=== PATIENT | female | born 1985 | race Caucasian/White ===

== ENCOUNTER 2019-01-26 21:51 | Emergency (ER) | payer BC, MEDICAID ==
[2019-01-26 22:18] VITALS: BP 137/78; PULSE 99
--- NOTE | 2019-01-26 23:48 | EDM.PDOC ---
ED HPI GENERAL MEDICAL PROBLEM - General Chief Complaint: General Stated Complaint: VAGINAL/ANAL PAIN, NAUSEA Time Seen by Provider: 01/26/19 22:46 Source of Information: Reports: Patient, RN History Limitations: Reports: No Limitations - History of Present Illness INITIAL COMMENTS - FREE TEXT/NARRATIVE: Chief Complaint: vaginal pain in This is a 33 year old who presents to ER with her , reports today is having severe pelvic pain and pressure. feels like her vaginal has been assaulted. She is 10 week and is worried something is wrong with the . Had a miscarriage last fall about this time in the . She denies any bleeding, spotting or uterine cramping. denies fever or chills. Onset: Today Duration: Hour(s):, Constant Location: Reports: Pelvis Quality: Reports: Ache, Sharp Improves with: Reports: None Worsens with: Reports: None Context: Reports: Other (reports no trauma to the pelvis, was sexual active 2 days ago. ) Lower Perineal Area Pain Score (Numeric/FACES): 9 - Related Data Allergies Allergy/AdvReac Type Severity Reaction Status Date / Time norgestimate Allergy Headache Verified 05/23/15 14:33 prednisolone Allergy Hyperactivi Verified 05/23/15 14:33 ty Home Meds: Home Meds Acetaminophen [Tylenol] 325 mg PO ASDIRECTED PRN 02/27/15 [History] Calcium Carbonate/Vitamin D3 [Calcium 500 + Vit D 400] 1 each PO DAILY 01/26/19 [History] Magnesium 250 mg PO DAILY 01/26/19 [History] Pnv No.95/Ferrous Fum/Folic AC [ Multivitamin Tablet] 1 each PO DAILY [History] Past Medical History HEENT History: Reports: Impaired 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: takes metformin to regulate cycle and help get - Past Surgical History HEENT Surgical History: Reports: Oral Surgery, Other (See Below) Other HEENT Surgeries/Procedures: wisdom teeth removal Social & Family History - Tobacco Use Smoking Status *Q: Never Smoker - Caffeine Use Caffeine Use: Reports: None - Recreational Drug Use Recreational Drug Use: No ED ROS GENERAL - Review of Systems Review Of Systems: See Below Constitutional: Reports: No Symptoms HEENT: Reports: No Symptoms Respiratory: Reports: No Symptoms Cardiovascular: Reports: No Symptoms Endocrine: Reports: No Symptoms GI/Abdominal: Reports: No Symptoms : Reports: Pain (labia and rectum and vaginal vault.), Other (, 10 weeks gestation) Musculoskeletal: Reports: No Symptoms Skin: Reports: No Symptoms Neurological: Reports: No Symptoms Psychiatric: Reports: Anxiety (worried about the ) Hematologic/Lymphatic: Reports: No Symptoms Immunologic: Reports: No Symptoms ED EXAM, GENERAL - Physical Exam Exam: See Below Exam Limited By: No Limitations General Appearance: Alert, WD/WN, No Apparent Distress, Other (pleasant neat and well groomed, no distress.) Ears: Normal External Exam Nose: Normal Inspection Head: Atraumatic, Normocephalic Neck: Normal Inspection, Supple, Non-Tender Respiratory/Chest: No Respiratory Distress, Lungs Clear, Normal Breath Sounds Cardiovascular: Regular Rate, Rhythm, No Edema, No Murmur GI/Abdominal: Normal Bowel Sounds, Soft, Non-Tender, No Distention, No Abnormal Bruit, No Mass, Pelvis Stable (Female) Exam: Normal External Exam (labia and rectum without redness, lesion or discharge, does have pain with palpation of labia majora. no abscess is noted.), Normal Speculum Exam, Normal Bimanual Exam (cx is nulltip, thick and closed.), Heart Tones (168 by ultrasound), Vaginal Discharge (creamy white, + odor) Rectal (Female) Exam: Normal Exam Back Exam: Normal Inspection, Full Range of Motion Extremities: Normal Inspection, Normal Range of Motion, Non-Tender, No Pedal Edema, Normal Capillary Refill Neurological: Alert, Oriented, CN II-XII Intact, Normal Cognition, Normal Gait, Normal Reflexes, No Motor/Sensory Deficits Psychiatric: Normal Affect, Normal Mood Skin Exam: Warm, Dry, Intact, Normal Color, No Rash Lymphatic: No Adenopathy Course - Vital Signs Last Recorded V/S: Last Vital Signs Temp 37.6 C 01/26/19 22:18 Pulse 99 01/26/19 22:18 Resp 18 01/26/19 22:18 BP 137/78 01/26/19 22:18 Pulse Ox 99 01/26/19 22:18 - Orders/Labs/Meds Labs: Laboratory Tests 01/26/19 Range/Units 23:11 Urine Color Yellow Urine Appearance Clear Urine pH 6.0 (4.5-8.0) Ur Specific [place] 1.020 (1.008-1.030) Urine Protein Negative (NEGATIVE) mg/dL Urine Glucose (UA) Normal (NEGATIVE) mg/dL Urine Ketones 50 H (NEGATIVE) mg/dL Urine Occult Blood Moderate (NEGATIVE) Urine Nitrite Negative (NEGATIVE) Urine Bilirubin Negative (NEGATIVE) Urine Urobilinogen Normal (NORMAL) mg/dL Ur Leukocyte Esterase Negative (NEGATIVE) Urine RBC 0-5 (0-5) Urine WBC 0-5 (0-5) Ur Epithelial Cells Few Amorphous Sediment Not seen Urine Bacteria Moderate Urine Mucus Not seen - Radiology Interpretation Free Text/Narrative:: vaginal exam is normal, no trauma is noted to labia or rectum. tender to palpation. vaginal vault has creamy white discharge, no bleeding or discharge is noted. cx is thick and closed. labs: wet prep is negative, urine has ketones - advised to push fluids, especially while Imaging: OB ultrasound limited, single viable gestation at 10 weeks 2 days, activity noted, heart tones 168, placenta without any signs of abruption or abnormality. no free fluid is seen. discussed with Chinyere and Partner all is well. will need to have pelvic rest, push fluids, and follow up with OB for recheck. agree with plan of care. 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 - Problem List & Annotations (1) Pelvic pain affecting in first trimester, antepartum SNOMED Code(s): 327244745, 865247016 Code(s): O26.891 - OTH RELATED CONDITIONS, FIRST TRIMESTER; R10.2 - PELVIC AND PERINEAL PAIN Status: Acute Priority: High - Problem List Review Problem List Initiated/Reviewed/Updated: Yes - Assessment/Plan Plan: abdominal -pelvic pain in -rest -push fluids -take Tylenol or Motrin for pain -follow up with OB-COMPUTER INSTALLER for recheck return to ER for increase pain, vaginal bleeding, cramping, fever or any concerns.
--- NOTE | 2019-01-26 23:48 | CRLUS ---
HISTORY: Vaginal pain and pressure COMPARISON: None available of this gestation. TECHNIQUE: Transabdominal ultrasound examination of the early was performed. FINDINGS: A single intrauterine gestational sac is seen with a pole. The crown-rump length measurement of 3.5 cm gives an estimated gestational age of 10 weeks 3 days with an estimated date of delivery of 08/21/2019. This correlates well with the LMP of 11/15/2018 which gives a clinical age of 10 weeks 2 days. Regular cardiac activity is seen at 169 BPM. There is no sign of free fluid in the pelvis. The ovaries are normal in appearance. IMPRESSION: Single intrauterine gestation with estimated age of 10 weeks 3 days. Regular cardiac activity is seen. Dictated by Cristopher Kenney MD @ Jan 26 2019 11:45PM Signed by Dr. Cristopher Kenney @ Jan 26 2019 11:48PM
== END 2019-01-26 23:51 | disposition home or self-care (01) ==
LOC: JP.ED 21:51
DX: O26.891 Other specified pregnancy related conditions, first trimester (principal); R10.2 Pelvic and perineal pain; Z3A.10 10 weeks gestation of pregnancy; Z88.8 Allergy status to other drugs, medicaments and biological substances; Z79.899 Other long term (current) drug therapy; Z79.84 Long term (current) use of oral hypoglycemic drugs
CPT/HCPCS: 76815; 81001; 87210; 99284-25

== ENCOUNTER 2020-12-08 16:08 | Emergency (ER) | payer MEDICAID ==
[2020-12-08 16:33] VITALS: BP 135/46; PULSE 86
--- NOTE | 2020-12-08 16:49 | EDM.PDOC ---
ED HPI GENERAL MEDICAL PROBLEM - General Chief Complaint: Lower Extremity Injury/Pain Stated Complaint: SWOLLEN CALF AND LEG Time Seen by Provider: 12/08/20 16:49 Source of Information: Reports: Patient, RN Notes Reviewed History Limitations: Reports: No Limitations - History of Present Illness INITIAL COMMENTS - FREE TEXT/NARRATIVE: Chinyere presents today for complaints of eight leg edema for two weeks with worsening today. She also reports pain to the top of her right foot. She denies any injury/trauma, fever, chills, nausea, vomiting or other concerns. Right Foot Pain Score (Numeric/FACES): 2 - Related Data Allergies Allergy/AdvReac Type Severity Reaction Status Date / Time norgestimate Allergy Headache Verified 12/08/20 16:33 prednisolone Allergy Hyperactivi Verified 12/08/20 16:33 ty Home Meds: Home Meds Acetaminophen [Tylenol] 325 mg PO ASDIRECTED PRN 02/27/15 [History] Calcium Carbonate/Vitamin D3 [Calcium 500 + Vit D 400] 1 each PO DAILY 01/26/19 [History] Magnesium 250 mg PO DAILY 01/26/19 [History] Pnv No.95/Ferrous Fum/Folic AC [ Multivitamin Tablet] 1 each PO DAILY 01/26/19 [History] Ascorbate Calcium [Vitamin C] 500 mg PO DAILY 12/08/20 [History] Cholecalciferol (Vitamin D3) [Vitamin D3] 1,000 unit PO DAILY 12/08/20 [History] Past Medical History HEENT History: Reports: Impaired Vision 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: , 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: takes metformin to regulate cycle and help get Gravada3 para1 - Infectious Disease History Infectious Disease History: Reports: Chicken Pox - Past Surgical History HEENT Surgical History: Reports: Oral Surgery, Other (See Below) Other HEENT Surgeries/Procedures: wisdom teeth removal Social & Family History - Tobacco Use Tobacco Use Status *Q: Never Tobacco User Second Hand Smoke Exposure: No - Caffeine Use Caffeine Use: Reports: None - Alcohol Use Days Per Week of Alcohol Use: 0 - Recreational Drug Use Recreational Drug Use: No Review of Systems - Review of Systems Review Of Systems: See Below Constitutional: Reports: No Symptoms Eyes: Reports: No Symptoms Ears: Reports: No Symptoms Nose: Reports: No Symptoms Mouth/Throat: Reports: No Symptoms Respiratory: Reports: No Symptoms Cardiovascular: Reports: No Symptoms GI/Abdominal: Reports: No Symptoms Genitourinary: Reports: No Symptoms Musculoskeletal: Reports: Foot Pain, Other (right lower extremity ) ED EXAM, GENERAL - Physical Exam Exam: See Below Exam Limited By: No Limitations General Appearance: Alert, WD/WN, No Apparent Distress Throat/Mouth: Normal Inspection, Normal Lips, Normal Teeth, Normal Gums, Normal Oropharynx, Normal Voice, No Airway Compromise Head: Atraumatic, Normocephalic Neck: Normal Inspection, Supple, Non-Tender, Full Range of Motion. No: Lymp hadenopathy (R), Lymphadenopathy (L) Respiratory/Chest: No Respiratory Distress, Lungs Clear, Normal Breath Sounds, No Accessory Muscle Use, Chest Non-Tender. No: Crackles, Rales, Rhonchi, Wheezing Cardiovascular: Normal Peripheral Pulses, Regular Rate, Rhythm, No Edema, No Gallop, No Murmur, No Rub Peripheral Pulses: 4+: Radial (L), Radial (R), Dorsalis Pedis (L), Dorsalis Pedis (R) Extremities: Normal Inspection, Normal Range of Motion, Non-Tender, No Pedal Edema, Normal Capillary Refill Neurological: Alert, Oriented, Normal Cognition, Normal Gait, Normal Reflexes Psychiatric: Normal Affect, Normal Mood Skin Exam: Warm, Dry, Intact, Normal Color, No Rash, Other (Noted 1+ pitting edema to right lower extremity from mid-calf to right foot) #1 Interpretation EKG Date: 12/08/20 Time: 19:04 Rhythm: NSR Treadwell: Normal P-Wave: Present QRS: Normal ST-T: Normal QT: Normal Comparison: NA - No Prior EKG Course - Vital Signs Last Recorded V/S: Last Vital Signs Temp 36.6 C 12/08/20 16:39 Pulse 86 12/08/20 16:39 Resp 12 12/08/20 16:39 BP 135/46 L 12/08/20 16:39 Pulse Ox 97 12/08/20 16:39 - Orders/Labs/Meds Orders: Active Orders 24 hr Category Date Time Status VL Duplex Lwr Ext Veins Ltd Rt [US] Stat Exams 12/08/20 17:09 Taken EKG 12 Lead [EK] Routine Ther 12/08/20 19:01 Ordered Labs: Laboratory Tests 12/08/20 12/08/20 12/08/20 Range/Units 17:25 17:25 17:25 WBC 12.3 H (4.5-11.0) K/uL RBC 3.80 (3.30-5.50) M/uL Hgb 11.3 L D (12.0-15.0) g/dL Hct 34.5 L (36.0-48.0) % MCV 91 (80-98) fL MCH 30 (27-31) pg MCHC 33 (32-36) % Plt Count 265 (150-400) K/uL Neut % (Auto) 75.0 H (36-66) % Lymph % (Auto) 17.1 L (24-44) % [place] % (Auto) 7.0 H (2-6) % Eos % (Auto) 0.7 L (2-4) % Baso % (Auto) 0.2 (0-1) % PT 10.0 (9.5-12.0) sec INR 0.92 (0.80-1.20) APTT 26.8 L (27.0-36.0) sec D-Dimer, Quantitative 569.23 H (0.0-500.0) ng/mL Sodium (140-148) mmol/L Potassium (3.6-5.2) mmol/L Chloride (100-108) mmol/L Carbon Dioxide (21-32) mmol/L Anion Gap (5.0-14.0) mmol/L BUN (7-18) mg/dL Creatinine (0.6-1.0) mg/dL Est Cr Clr Drug Dosing mL/min Estimated GFR (MDRD) (>60) Glucose (74-106) mg/dL Calcium (8.5-10.1) mg/dL Total Bilirubin (0.2-1.0) mg/dL AST (15-37) U/L ALT (12-78) U/L Alkaline Phosphatase (46-116) U/L Total Protein (6.4-8.2) g/dL Albumin (3.4-5.0) g/dL Globulin (2.3-3.5) g/dL Albumin/Globulin Ratio (1.2-2.2) 12/08/20 Range/Units 17:25 WBC (4.5-11.0) K/uL RBC (3.30-5.50) M/uL Hgb (12.0-15.0) g/dL Hct (36.0-48.0) % MCV (80-98) fL MCH (27-31) pg MCHC (32-36) % Plt Count (150-400) K/uL Neut % (Auto) (36-66) % Lymph % (Auto) (24-44) % [place] % (Auto) (2-6) % Eos % (Auto) (2-4) % Baso % (Auto) (0-1) % PT (9.5-12.0) sec INR (0.80-1.20) APTT (27.0-36.0) sec D-Dimer, Quantitative (0.0-500.0) ng/mL Sodium 140 (140-148) mmol/L Potassium 3.7 (3.6-5.2) mmol/L Chloride 104 (100-108) mmol/L Carbon Dioxide 25 (21-32) mmol/L Anion Gap 11.5 (5.0-14.0) mmol/L BUN 12 (7-18) mg/dL Creatinine 0.8 (0.6-1.0) mg/dL Est Cr Clr Drug Dosing 90.00 mL/min Estimated GFR (MDRD) > 60 (>60) Glucose 77 (74-106) mg/dL Calcium 8.7 (8.5-10.1) mg/dL Total Bilirubin 0.2 (0.2-1.0) mg/dL AST 9 L (15-37) U/L ALT 14 (12-78) U/L Alkaline Phosphatase 48 (46-116) U/L Total Protein 6.3 L (6.4-8.2) g/dL Albumin 2.9 L (3.4-5.0) g/dL Globulin 3.4 (2.3-3.5) g/dL Albumin/Globulin Ratio 0.9 L (1.2-2.2) Patient lab work reviewed with her. Noted ddimer elevated - can be with . US pending. - Radiology Interpretation Free Text/Narrative:: US of left leg negative for DVT. - Re-Assessments/Exams Free Text/Narrative Re-Assessment/Exam: Lab work and US discussed with Chinyere, no acute findings noted. She will work on fluid intake, monitor sodium in diet, obtain compression stockings and follow up with her primary and OB as directed. Return for any worsening, issues or concerns. Departure - Departure Time of Disposition: 19:02 Disposition: Home, Self-Care 01 Condition: Good Clinical Impression: Edema of right lower leg - Discharge Information *PRESCRIPTION DRUG MONITORING PROGRAM REVIEWED*: No *COPY OF PRESCRIPTION DRUG MONITORING REPORT IN PATIENT ANITRA: No Instructions: Edema Referrals: Kim Mendez PA [Primary Care Provider] - Forms: ED Department Discharge Additional Instructions: You have been evaluated and treated for edema of the right lower leg in . US of your right leg was negative for a deep vein thrombosis. Your lab work was negative for infection. It would be best for you to stay hydrated and obtain compression stockings to help with your circulation. You can take tylenol as needed for pain. Watch sodium intake in your diet as this can make edema worse. Hot weather can also cause edema to worsen. Follow up with your OB provider in 3 to 7 days for a recheck to make sure you are doing well. Return at any time for worsening, issues or concerns. Sepsis Event Note (ED) - Evaluation Sepsis Screening Result: No Definite Risk - Focused Exam Vital Signs: Vital Signs Temp Pulse Resp BP Pulse Ox 12/08/20 16:39 36.6 C 86 12 135/46 L 97 12/08/20 16:31 36.6 C 86 12 135/46 L 97 - My Orders Last 24 Hours: My Active Orders 12/08/20 17:09 VL Duplex Lwr Ext Veins Ltd Rt [US] Stat 12/08/20 19:01 EKG 12 Lead [EK] Routine - Assessment/Plan Last 24 Hours: My Active Orders 12/08/20 17:09 VL Duplex Lwr Ext Veins Ltd Rt [US] Stat 12/08/20 19:01 EKG 12 Lead [EK] Routine Assessment:: Edema of right lower leg Plan: Patient evaluated and treated for edema of the right lower leg in . US of right leg was negative for a deep vein thrombosis. Patient lab work was negative for infection. It would be best for her to stay hydrated and obtain compression stockings to help with circulation. She can take tylenol as needed for pain. Watch sodium intake in diet as this can make edema worse. Hot weather can also cause edema to worsen. Follow up with OB provider in 3 to 7 days for a recheck to make sure she is doing well. Return at any time for worsening, issues or concerns.
--- NOTE | 2020-12-10 09:23 | US ---
VL Duplex Lwr Ext Veins Ltd Rt INDICATION: Right lower leg edema/pain FINDINGS: Ultrasound examination of the lower extremity using Doppler and compressive technique demonstrates that the common femoral, femoral, and popliteal veins are patent, and negative for thrombus. The calf veins were segmentally visualized and are negative where seen. IMPRESSION: Negative for deep venous thrombosis.
== END 2020-12-08 19:14 | disposition home or self-care (01) ==
LOC: JP.ED 16:08
DX: R60.0 Localized edema (principal); Z88.8 Allergy status to other drugs, medicaments and biological substances
CPT/HCPCS: 36415; 80053; 85025; 85379; 85610; 85730; 93971-26; 93971-RT; 99284-25